=== PATIENT | male | born 1940 | race Caucasian/White ===

== ENCOUNTER 2016-08-15 10:07 | Inpatient (IN) | payer MEDICARE ==
[~2016-08-15] VITALS: Ht 175.3 cm; Wt 85.8 kg
[2016-08-15] MEDS ORDERED: NITROGLYCERIN SINGLE TAB 0.4 MG SL PRN (10:30)
[2016-08-15] MEDS ORDERED: ASPIRIN 81 MG TABLET CHEW PO ONE (10:30)
[2016-08-15] MEDS ORDERED: SODIUM CHLORIDE FLUSH 10ML SYR IVF ONE ×2 (10:30→13:00)
[2016-08-15] MEDS ORDERED: NITROGLYCERIN SINGLE TAB 0.4 MG SL ONE (10:41)
[2016-08-15] MEDS ORDERED: ASPIRIN 81 MG TABLET CHEW ONE (10:42)
[2016-08-15] MEDS ORDERED: ASPI-496 PO (11:34)
[2016-08-15] MEDS ORDERED: ROSU5TAB PO (11:34)
[2016-08-15 11:36] LABS: BLOOD UREA NITROGEN 15 mg/dL (7-18)
[2016-08-15] MEDS ORDERED: BIVALIRUDIN 250 MG ONE ×2 (11:37→12:36)
[2016-08-15] MEDS ORDERED: FENTANYL PF 100 MCG/2ML ONE ×2 (11:37→11:55)
[2016-08-15] MEDS ORDERED: MIDAZOLAM 1 MG/ML, 5ML ONE (11:37)
[2016-08-15] MEDS ORDERED: HEPARIN 1,000 UNITS/ML, 10ML ONE (11:37)
[2016-08-15] MEDS ORDERED: TICAGRELOR 90 MG TABLET ONE (11:37)
[2016-08-15] MEDS ORDERED: VERAPAMIL 2.5 MG/ML, 2ML ONE (11:37)
[2016-08-15] MEDS ORDERED: NITROGLYCERIN 5 MG/ML, 10ML ONE (11:37)
[2016-08-15] MEDS ORDERED: LIDOCAINE 2%, 20ML ONE (11:38)
[2016-08-15] MEDS: SODIUM CHLORIDE 0.9% 1,000 ML IV SCH ×2 (11:54→19:54)
[2016-08-15] MEDS ORDERED: BIVALIRUDIN 250 MG in DEXTROSE 5% 50 ML IV SCH (11:54)
[2016-08-15] MEDS ORDERED: ACETAMINOPHEN 325 MG TABLET PO PRN (12:00)
[2016-08-15] MEDS ORDERED: ASPIRIN 325 MG TABLET EC ONE (12:36)
[2016-08-15 13:00] VITALS: BP 124/81
[2016-08-15 18:03] VITALS: BP 110/63
[2016-08-15 19:22] VITALS: BP 112/71
[2016-08-16 00:34] VITALS: BP 99/64
[2016-08-16] MEDS: SODIUM CHLORIDE 0.9% 1,000 ML IV SCH ×3 (01:31→19:44)
[2016-08-16 05:48] LABS: BLOOD UREA NITROGEN 14 mg/dL (7-18)
[2016-08-16 08:00] VITALS: BP 101/66
[2016-08-16] MEDS: ASPIRIN 81 MG TABLET EC PO SCH (10:56)
[2016-08-16] MEDS: TICAGRELOR 90 MG TABLET PO SCH ×2 (10:56→19:44)
[2016-08-16] MEDS: METOPROLOL TARTRATE 25 MG TABLET PO SCH ×2 (10:56→18:11)
[2016-08-16 15:00] VITALS: BP 95/59
[2016-08-16 19:04] VITALS: BP 106/59
[2016-08-16] MEDS ORDERED: ATORVASTATIN 40 MG TABLET PO SCH (21:00)
[2016-08-17 00:39] VITALS: BP 99/65
[2016-08-17] MEDS: SODIUM CHLORIDE 0.9% 1,000 ML IV SCH (01:13)
[2016-08-17] MEDS: METOPROLOL TARTRATE 25 MG TABLET PO SCH ×2 (01:13→10:50)
[2016-08-17 07:02] VITALS: BP 104/69
[2016-08-17] MEDS: TICAGRELOR 90 MG TABLET PO SCH (08:34)
[2016-08-17] MEDS: ASPIRIN 81 MG TABLET EC PO SCH (08:34)
[2016-08-17] MEDS ORDERED: TICA90TA PO (09:43)
[2016-08-17] MEDS ORDERED: METO25TA35 PO (09:43)
== END 2016-08-17 12:57 | disposition home or self-care (01) | DRG 246 ==
LOC: ED 10:55 → EDIP 11:28 → 5SO 13:12
PROVIDERS: ADMIT Internal Medicine Cardiovascular Disease; ATTEND Internal Medicine Cardiovascular Disease
PROC: 027034Z Dilation of Coronary Artery, One Artery with Drug-eluting Intraluminal Device, Percutaneous Approach (ICD-10-PCS; principal; 2016-08-15)
PROC: 4A023N7 Measurement of Cardiac Sampling and Pressure, Left Heart, Percutaneous Approach (ICD-10-PCS; 2016-08-15)
PROC: B2111ZZ Fluoroscopy of Multiple Coronary Arteries using Low Osmolar Contrast (ICD-10-PCS; 2016-08-15)
PROC: B2151ZZ Fluoroscopy of Left Heart using Low Osmolar Contrast (ICD-10-PCS; 2016-08-15)
PROC: B2131ZZ Fluoroscopy of Multiple Coronary Artery Bypass Grafts using Low Osmolar Contrast (ICD-10-PCS; 2016-08-15)
PROC: B2181ZZ Fluoroscopy of Left Internal Mammary Bypass Graft using Low Osmolar Contrast (ICD-10-PCS; 2016-08-15)
DX: T82.855A Stenosis of coronary artery stent, initial encounter (principal); I21.19 ST elevation (STEMI) myocardial infarction involving other coronary artery of inferior wall; I50.30 Unspecified diastolic (congestive) heart failure; I25.119 Atherosclerotic heart disease of native coronary artery with unspecified angina pectoris; I11.0 Hypertensive heart disease with heart failure; E78.5 Hyperlipidemia, unspecified; I71.4 Abdominal aortic aneurysm, without rupture; R00.8 Other abnormalities of heart beat; Z95.1 Presence of aortocoronary bypass graft; I25.2 Old myocardial infarction; Z87.891 Personal history of nicotine dependence; Z82.49 Family history of ischemic heart disease and other diseases of the circulatory system
CPT/HCPCS: 36415; 71010; 80048; 82040; 83880; 84484; 85025; 85610; 85730; 93005; 93306; 93459; 99285; C1760; C1894; C9600; J0583; J1644; J2250; J3010; J3490; C1725; C1769; C1874; C1887; Q9967

== ENCOUNTER → 2019-08-24 | Outpatient (CLI) | payer MEDICARE ==
[~2019-08-24] MED LIST: ASPI-496 PO; METO25TA35 PO; REGADENOSON 0.4 MG/5 ML SYRINGE ONE; ROSU5TAB PO; TICA90TA PO
== END | disposition home or self-care (01) ==
LOC: CFH 11:01
PROVIDERS: ATTEND Internal Medicine Cardiovascular Disease
DX: I21.19 ST elevation (STEMI) myocardial infarction involving other coronary artery of inferior wall (principal); I49.3 Ventricular premature depolarization; I25.5 Ischemic cardiomyopathy; I25.2 Old myocardial infarction
CPT/HCPCS: 78452; 93017; 93306; A9502; J2785

== ENCOUNTER → 2020-09-06 | Outpatient (CLI) | payer MEDICARE ==
[~2020-09-06] MED LIST changes: -REGADENOSON 0.4 MG/5 ML SYRINGE ONE
== END | disposition home or self-care (01) ==
LOC: CVU 12:30
PROVIDERS: ATTEND Internal Medicine Cardiovascular Disease
DX: I65.23 Occlusion and stenosis of bilateral carotid arteries (principal); R09.89 Other specified symptoms and signs involving the circulatory and respiratory systems; E78.2 Mixed hyperlipidemia; R42 Dizziness and giddiness; R55 Syncope and collapse
CPT/HCPCS: 93880